=== PATIENT | female | born 1945 | race Caucasian/White ===

== ENCOUNTER 2025-05-18 17:24 | Emergency (ER) | payer SELFPAY ==
[~2025-05-18] VITALS: Ht 170.2 cm; Wt 88.0 kg
[2025-05-18 17:36] VITALS: O2SAT 93
[2025-05-18 19:31] VITALS: BP 113/62; PULSE 73; RESP 18; TEMP 36.6; O2SAT 93
== END 2025-05-18 19:33 | disposition home or self-care (01) ==
LOC: ER 17:24
DX: J44.9 Chronic obstructive pulmonary disease, unspecified (principal); Z98.890 Other specified postprocedural states
CPT/HCPCS: 99282